=== PATIENT | female | born 1945 | race Caucasian/White ===

== ENCOUNTER 2021-12-21 10:30 | Outpatient (CLI) | payer OTHER ==
[~2021-12-21 10:30] MED LIST: ADULT LOW DOSE81 M1; CRESTOR10 MG; LOPRESSOR25 MG; SYNTHROID50 MCG
== END 2021-12-21 10:32 | disposition home or self-care (01) ==
LOC: SONOGRAMA 10:30
PROVIDERS: ATTEND Obstetrics & Gynecology
DX: D28.0 Benign neoplasm of vulva (principal); Z85.44 Personal history of malignant neoplasm of other female genital organs

== ENCOUNTER 2024-10-27 14:35 | Emergency (ER) | payer OTHER ==
[~2024-10-27] VITALS: Ht 149.9 cm; Wt 53.5 kg
[2024-10-27] MEDS ORDERED: MEMANTINE HCL5 MG (14:58)
[2024-10-27 15:01] VITALS: BP 160/79; O2SAT 97
[2024-10-27] MEDS ORDERED: DICLOFENAC SODI75 MG PO (15:10)
[2024-10-27] MEDS ORDERED: KETOROLAC TROMETHAMINE 60 MG VIAL IM ONE ×2 (15:15→15:21)
[2024-10-27] MEDS ORDERED: TRIAMCINOLONE ACETONIDE 40 MG/ML VIAL IM ONE (15:15)
[2024-10-27] MEDS ORDERED: TRIAMCINOLONE ACETONIDE 40 MG/ML VIAL ONE (15:21)
== END 2024-10-27 15:44 | disposition home or self-care (01) ==
LOC: ER 14:38
DX: M77.8 Other enthesopathies, not elsewhere classified (principal); I10 Essential (primary) hypertension
CPT/HCPCS: 29105; 96372; 99282; J1885; J3301